=== PATIENT | female | born 1965 | race Hispanic/Latino ===

== ENCOUNTER → 2023-06-17 | Emergency (ER) | payer OTHER ==
[~2023-06-17] MED LIST: KETOROLAC 30 MG/ML INJ ONE; methocarbamoL 500 MG TAB ONE
--- OUTSIDE RECORDS SUMMARY | 2023-06-17 17:34 | XMS REPORT | Continuity of Care Document ---
Author Name Unknown Address [address] [facility] [address] [id number] [facility] Address [address] [facility] [place] [address] Care Team Providers Care Ripsaw Operator Name Role Phone PCP, PATIENT DOES NOT HAVE A Primary Care Physic OSMAN Lopez III Attending Clinician Radha luna Only, Brennan Db Test Attending Clinician Osman Guzman MD Attending Clinician Payers Payer Name Policy Type Policy Number Effective Date Expirati on Date Source [employer] II [id number] 2021 00:00:00 Allergies, Adverse Reactions, Alerts Allergy Name Allergy Type Status Severity Reaction(s) Onset Date Inactive Date Treating Clinician Comments Source NO KNOWN ALLERGIE S Drug Class Active General acute hospital Social History Social Habit Start Date Stop Date Quantity Comments Source Exposure to SARS-CoV-2 (event) Yes [facility] Sex Assigned At 1965 00:00:00 1965 00:00:00 [facility] Smoking Status Start Date Stop Date Source Unknown if ever smoked [facility] Medications Ordered Medication Name Filled Medication Name Start Date Stop Date Current Medication? Ordering Clinician Indication Dosage Frequency Signature (SIG) Comments Components Source No known medications 06-03 18:09: 57 No General acute hospital Encounters Start Date/Time End Date/Time Encounter Type Admission Type Attending Clinicians Care Facility Care Department Encounter ID Source 2021-06-03 18:00:00 2021-06-03 18:08:51 Outpatient OSMAN KOTHARI III [facility] [id number] General acute hospital 2021-06-03 18:00:00 2021-06-03 18:08:51 Laboratory Only Only, Ang Db Test Osman Crabtree [facility] [id number] General acute hospital 2021-06-03 18:00:00 2021-06-03 18:00:00 Outpatient R [facility] [id number] General acute hospital
--- NOTE | 2023-06-17 19:30 | RAD REPORT ---
EXAM DESCRIPTION: US - Extremity Venous Uni Ltd - 06/17/2023 7:07 pm CLINICAL HISTORY: Right lower extremity swelling COMPARISON: None. TECHNIQUE: Real-time sonographic evaluation of the right lower extremity deep venous system was perf ormed. FINDINGS: Normal compressibility, flow augmentation, phasic flow and spontaneous flow is identified in the right lower extremity deep venous system. No intraluminal filling defects seen. IMPRESSION: No DVT in the right lower extremity.
--- NOTE | 2023-06-17 19:43 | ER ---
Nurse's Notes [facility] Name: Dora John Age: 57 yrs Sex: Female : 1965 Arrival Date: 06/17/2023 Time: 17:32 Bed DIS2 Private MD: Diagnosis: Pain in left leg Presentation: 06/17 18:22 Chief complaint: Patient states: Pt reports right calf pain since yesterday. ap3 Coronavirus screen: Vaccine status: Patient reports receiving the 2nd dose of the covid vaccine. Client denies travel out of the [place] in the last 14 days. Ebola Screen: Patient negative for fever greater than or equal to 101.5 degrees Fahrenheit, and additional compatible Ebola Virus Disease symptoms Patient denies exposure to infectious person. Patient denies travel to an Ebola-affected area in the 21 days before illness onset. Initial Sepsis Screen: Does the patient meet any 2 criteria? No. Patient's initial sepsis screen is negative. Does the patient have a suspected source of infection? No. Patient's initial sepsis screen is negative. Risk Assessment: Do you want to hurt yourself or someone else? Patient reports no desire to harm self or others. Onset of symptoms was June 16, 2023 at 09:00. 18:22 Method Of Arrival: Ambulatory ap3 18:22 Acuity: JUSTIN 2 ap3 Triage Assessment: 18:23 General: Appears in no apparent distress. Behavior is calm, cooperative. Pain: ap3 Complains of pain in right calf. Historical: - Allergies: 18:23 No Known Allergies; ap3 - Home Meds: 18:23 None [Active]; ap3 - PMHx: 18:23 None; ap3 - PSHx: 18:23 None; ap3 - Immunization history:: Adult Immunizations up to date, Client reports receiving the 2nd dose of the Covid vaccine, Last tetanus immunization: up to date. - Social history:: Smoking status: Patient denies any tobacco usage or history of. Screenin:30 [facility] ED Fall Risk Assessment (Adult) History of falling in the last 3 months, lg3 including since admission No falls in past 3 months (0 pts). Abuse screen: Denies threats or abuse. Denies injuries from another. Nutritional screening: No deficits noted. Tuberculosis screening: No symptoms or risk factors identified. Assessment: 20:30 General: Appears in no apparent distress. comfortable, Behavior is calm, cooperative. lg3 Pain: Complains of pain in right leg and right calf Pain currently is 4 out of 10 on a pain scale. Neuro: No deficits noted. Albert Agitation-Sedation Scale (RASS): 0 - Alert and Calm Level of Consciousness is awake, alert, obeys commands, Oriented to person, place, time, situation. Cardiovascular: No deficits noted. Denies chest pain, shortness of breath, Capillary refill < 3 seconds Clubbing of nail beds is absent JVD is absent Patient's skin is warm and dry. Respiratory: No deficits noted. Airway is patent Respiratory effort is even, unlabored, Respiratory pattern is regular, symmetrical. GI: No deficits noted. No signs and/or symptoms were reported involving the gastrointestinal system. Abdomen is round non-distended, obese. : No deficits noted. No signs and/or symptoms were reported regarding the genitourinary system. EENT: No deficits noted. No signs and/or symptoms were reported regarding the EENT system. Derm: No deficits noted. No signs and/or symptoms reported regarding the dermatologic system. Skin is intact, is healthy with good turgor, Skin is dry, Skin is normal, Skin temperature is warm. Musculoskeletal: No deficits noted. Circulation, motion, and sensation intact. Range of motion: intact in all extremities, Reports pain in right leg and right calf. Vital Signs: 18:22 Pulse 89; Resp 16; Temp 98.5; Pulse Ox 99% ; Weight 97.52 kg; Height 5 ft. 0 in. ; Pain ap3 10/10; 18:24 BP 189 / 99; ap3 20:30 BP 162 / 89; Pulse 80; Resp 17 S; Pulse Ox 99% on R/A; lg3 18:22 Body Mass Index 41.99 (97.52 kg, 152.4 cm) ap3 18:22 Pain Scale: Adult ap3 ED Course: 17:35 Patient arrived in ED. mg5 17:38 Barber Ansari MD is Attending Physician. ec2 18:23 Triage completed. ap3 18:23 Arm band placed on right wrist. ap3 19:09 Extremity Venous Uni Ltd US In Process Unspecified. EDMS 20:30 Patient has correct armband on for positive identification. lg3 20:30 No provider procedures requiring assistance completed. Patient did not have IV access lg3 during this emergency room visit. Administered Medications: 20:22 Drug: Methocarbamol PO 500 mg PO once Route: PO; lg3 20:32 Follow up: Response: No adverse reaction lg3 20:23 Drug: Ketorolac IM 30 mg IM once Route: IM; Site: left deltoid; lg3 20:33 Follow up: Response: No adverse reaction lg3 Medication: 20:30 VIS not applicable for this client. lg3 Outcome: 19:43 Discharge ordered by . ec2 20:30 Discharged to home ambulatory, lg3 20:30 Condition: stable 20:30 Discharge instructions given to patient, Instructed on discharge instructions, follow up and referral plans. Demonstrated understanding of instructions, follow-up care, 20:33 Patient left the ED. lg3 Signatures: Dispatcher [employer] Rowan Duckworth RN RN ap3 Eva Stroud RN RN lg3 Iliana Hairston mg5 Barber Ansari MD MD ec2 Corrections: (The following items were deleted from the chart) 18:24 18:22 Chief complaint: Patient states: Pt reports left calf pain since yesterday ap3 ap3
--- NOTE | 2023-06-17 19:43 | EDPHYS ---
Physician Documentation [facility] Name: Dora John Age: 57 yrs Sex: Female : 1965 Arrival Date: 06/17/2023 Time: 17:32 Bed DIS2 Private MD: ED Physician Barber Ansari HPI: 06/17 18:36 This 57 yrs old Female presents to ER via Ambulatory with complaints of Leg ec2 Pain - Calf. 18:36 Patient arrives today for right leg pain. Patient reports she is experiencing pain at ec2 the right calf. Reports no trauma or injury, no strain. 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 Denies any redness or fevers or chills.. Historical: - Allergies: 18:23 No Known Allergies; ap3 - Home Meds: 18:23 None [Active]; ap3 - PMHx: 18:23 None; ap3 - PSHx: 18:23 None; ap3 - Immunization history:: Adult Immunizations up to date, Client reports receiving the 2nd dose of the Covid vaccine, Last tetanus immunization: up to date. - Social history:: Smoking status: Patient denies any tobacco usage or history of. ROS: 18:36 Constitutional: as per hpi ec2 Exam: 18:36 Constitutional: GEN: NAD Head: atraumatic Eyes: EOMI Ears: External ears are ec2 normal. CV: regular rate LUNGS: no respiratory distress ABD: non-distended SKIN: Prominent varicose veins on the right anterior tibia, TTP to the right calf. No erythema MSK: no evidence of trauma, good ROM of the right lower extremity NEURO: moves all extremities equally Vital Signs: 18:22 Pulse 89; Resp 16; Temp 98.5; Pulse Ox 99% ; Weight 97.52 kg; Height 5 ft. 0 in. ; Pain ap3 10/10; 18:24 BP 189 / 99; ap3 20:30 BP 162 / 89; Pulse 80; Resp 17 S; Pulse Ox 99% on R/A; lg3 18:22 Body Mass Index 41.99 (97.52 kg, 152.4 cm) ap3 18:22 Pain Scale: Adult ap3 MDM: 18:20 Patient medically screened. ec2 18:36 Data reviewed: vital signs. ED course: Patient arrives today for evaluation of right ec2 calf pain. Examination remarkable for right lower extremity findings as noted above. Will obtain lab work as well as ultrasonography of the right lower extremity. Currently considering DVT, calf strain, low suspicion for arterial pathology.. 19:31 ED course: DVT ultrasound negative. Will start the patient on Robaxin and have her ec2 follow with her primary care doctor. Suspect MSK pain. Return precautions given.. 06/17 18:34 Order name: Extremity Venous Uni Ltd US; Complete Time: 19:31 ec2 Administered Medications: 20:22 Drug: Methocarbamol PO 500 mg PO once Route: PO; lg3 20:32 Follow up: Response: No adverse reaction lg3 20:23 Drug: Ketorolac IM 30 mg IM once Route: IM; Site: left deltoid; lg3 20:33 Follow up: Response: No adverse reaction lg3 Disposition Summary: 06/17/23 19:43 Discharge Ordered Notes: Location: Home ec2 Condition: Stable ec2 Diagnosis - Pain in left leg ec2 Followup: ec2 - With: Private Physician - When: - Reason: Recheck today's complaints Discharge Instructions: - Discharge Summary Sheet ec2 - Musculoskeletal Pain ec2 Forms: - Medication Reconciliation Form ec2 - Thank You Letter ec2 - Antibiotic Education ec2 - Prescription Opioid Use ec2 - Patient Portal Instructions ec2 - Leadership Thank You Letter ec2 Prescriptions: - methocarbamol 500 mg Oral tablet - take 1 tablet ORAL route 4 times per day; 20 tablet; Refills: 0, Product ec2 Selection Permitted Signatures: Dispatcher [employer] Rowan Duckworth RN RN ap3 Eva Stroud RN RN lg3 Barber Ansari MD MD ec2 Corrections: (The following items were deleted from the chart) 18:44 18:44 Patient medically screened. ec2 ec2
== END ==
LOC: ER 17:32
DX: M79.661 Pain in right lower leg (principal)
CPT/HCPCS: 93971; 96372; 99284

== ENCOUNTER 2024-09-03 07:01 | Inpatient (IN) | payer OTHER ==
[2024-09-03] MEDS ORDERED: MORPHINE 4 MG/ML SYR ONE ×2 (07:36→11:57)
[2024-09-03] MEDS ORDERED: ONDANSETRON 4 MG/2 ML VIAL ONE (07:36)
[2024-09-03 07:42] LABS: Absolute Lymphocytes (CBC) 0.6 K/uL (0.7-4.9); Absolute Monocytes 0.3 K/uL (0.1-1.3); Absolute Neutrophil 11.9 K/uL (1.8-8.0); Basophils % 0.2 % (0-1.3); Hematocrit 44.5 % (36.0-45.0); Hemoglobin 15.3 g/dL (12.0-15.0); Lymphocytes % 4.8 % (15.3-44.8); MCH 29.4 pg (27.0-35.0); MCHC 34.4 g/dL (32.0-36.0); MCV 85.6 fL (80-100); MPV 7.7 fL (7.6-11.3); Monocytes % 2.5 % (3.3-12.3); Neutrophils % 92.5 % (41.7-73.7); Nucleated Red Blood Cells % 0.2 % (0-0); Platelets 252 thou/uL (152-406); Red Cell Distribution Width 14.8 % (12.1-15.2)
[2024-09-03 08:00] LABS: Albumin 3.4 g/dL (3.4-5.0); Albumin/Globulin Ratio 0.8 (1.1-1.8); Anion Gap 8.6 mEq/L (5.0-15.0); Bilirubin Total 0.4 mg/dL (0.2-1.0); Globulin 4.5 g/dL (2.3-3.5); Potassium 3.6 mEq/L (3.5-5.1); Protein, Total 7.9 g/dL (6.4-8.2)
--- NOTE | 2024-09-03 08:46 | RAD REPORT ---
EXAMINATION: CT ABDOMEN AND PELVIS WITH CONTRAST CLINICAL INDICATION: Abdominal pain. Rectal bleeding TECHNIQUE: CT abdomen and pelvis was performed, after the administration of 100 cc Isovue-300.. Sagit keyshawn and coronal reconstructions were obtained. One or more of the following dose reduction techniques were used: Automated exposure control, adjustment of the mA and kV according to patient si ze, and iterative reconstruction. Unless otherwise specified, incidental findings do not require dedicated imaging follow-up. [id number]. Oral contrast was not given which limits evaluation of bowel and appendix. COMPARISON: .None FINDINGS: Liver, pancreas, adrenals and kidneys unremarkable 1.6 cm splenic cyst. Normal appendix. The wall of the transverse colon moderately thickened. The wall of the ascending colon mildly thicken ed. Pneumatosis intestinalis is not present. No free air. No evidence of diverticulitis. 8 cm uterine mass : IMPRESSION: Mild to moderate wall thickening ascending and transverse colon consistent with colitis. 8 cm uterine mass probably a fibroid. Nonemergent ultrasound recommended
[2024-09-03 08:53] LABS: Blood Morphology Comment NOT SEEN (NOT SEEN); Platelet Estimate ADEQ; White Blood Cell Scan OK (OK)
[2024-09-03] MEDS ORDERED: NA CHLORIDE 0.9% 100 ML ONE (09:08)
[2024-09-03] MEDS ORDERED: PIPERACIL/TAZO 3.375 GM VIAL IV ONE (09:08)
--- NOTE | 2024-09-03 09:17 | ER ---
Nurse's Notes [facility] Name: Dora John Age: 58 yrs Sex: Female : 1965 Arrival Date: 09/03/2024 Time: 07:01 Bed 7 Private MD: Diagnosis: Left sided colitis with rectal bleeding Presentation: 09/03 07:16 Chief complaint: Patient states: N/V/D, rectal bleeding, body aches and fever that ss began at midnight last night. Coronavirus screen: Client denies travel out of the [place] in the last 14 days. Ebola Screen: Patient denies exposure to infectious person. Patient denies travel to an Ebola-affected area in the 21 days before illness onset. Initial Sepsis Screen: Does the patient meet any 2 criteria? No. Patient's initial sepsis screen is negative. Does the patient have a suspected source of infection? No. Patient's initial sepsis screen is negative. Risk Assessment: Do you want to hurt yourself or someone else? Patient reports no desire to harm self or others. Onset of symptoms was September 03, 2024. 07:16 Method Of Arrival: Wheelchair ss 07:16 Acuity: JUSTIN 3 ss Historical: - Allergies: 07:17 No Known Allergies; ss - Home Meds: 07:18 Lisinopril [Active]; ss - PMHx: 07:18 Hypertensive disorder; ss - Immunization history:: Adult Immunizations unknown. - Infectious Disease History:: Denies. - Family history:: not pertinent. - Social history:: Smoking status: Patient denies any tobacco usage or history of. - Hospitalizations: : No recent hospitalization is reported. Screenin:35 [facility] ED Fall Risk Assessment (Adult) History of falling in the last 3 months, db including since admission No falls in past 3 months (0 pts) Confusion or Disorientation No (0 pts) Intoxicated or Sedated No (0 pts) Impaired Gait No (0 pts) Mobility Assist Device Used No (0 pt) Altered Elimination No (0 pt) Score/Fall Risk Level 0 - 2 = Low Risk Oriented to surroundings, Maintained a safe environment. Abuse screen: Denies threats or abuse. Denies injuries from another. Nutritional screening: No deficits noted. Tuberculosis screening: No symptoms or risk factors identified. Assessment: 07:35 Reassessment: Patient appears in no apparent distress at this time. Patient and/or db family updated on plan of care and expected duration. Pain level reassessed. Patient is alert, oriented x 3, equal unlabored respirations, skin warm/dry/pink. General: Appears in no apparent distress. comfortable, Behavior is calm, cooperative. Pain: Complains of pain in abdomen. Neuro: Level of Consciousness is awake, alert, obeys commands, Oriented to person, place, time, situation. Respiratory: Airway is patent Respiratory effort is even, unlabored, Respiratory pattern is regular, symmetrical. GI: Bowel sounds present X 4 quads. Abd is soft Abdomen is tender to palpation. GI: Reports diarrhea, nausea, vomiting. 11:28 Reassessment: Patient appears in no apparent distress at this time. Patient and/or jl7 family updated on plan of care and expected duration. Pain level reassessed. Patient is alert, oriented x 3, equal unlabored respirations, skin warm/dry/pink. Family remains at bedside. 11:39 Reassessment: Called and spoke with JM Connell who states she is waiting to hear ss back from Dr. Miranda prior to placing admission orders. 12:03 Reassessment: PATIENT COMPLAINS OF PAIN. SEE MAR FOR MEDICATION ADMINISTRATION. Pain: db Complains of pain in abdomen. 13:03 Reassessment: Lactate ordered at this time. JM Garcia states that Dr. Givens and Dr. kerri Lang are considering transferring patient. Awaiting LACTATE results. 13:33 Reassessment: Patient appears in no apparent distress at this time. Patient and/or db family updated on plan of care and expected duration. Pain level reassessed. Patient is alert, oriented x 3, equal unlabored respirations, skin warm/dry/pink. GI: Stools are reported to be NOTED 1/2 DOLLAR SIZE MUCOUS STOOL WITH RED BLOOD . Reports. 14:23 Reassessment: Dr. Lang on phone with Dr. Miranda to ensure that he would be seeing ss patient in hospital today. Dr. Miranda states he will be in to see patient after clinic today which ends at approximately 1800. 14:27 Reassessment: Dr. Lang states ok to admit patient. 14:31 Reassessment: NOTIFIED 2ND FLOOR RN PATIENT IS ON THE WAY. FAXED AT 1338. HELD IN ER db PENDING LAB AND PHYSICIAN. Vital Signs: 07:15 BP 175 / 87; Pulse 71; Resp 16; Pulse Ox 96% ; db 07:16 BP 163 / 86; Pulse 65; Resp 18; Temp 98.1(O); Pulse Ox 98% on R/A; Weight 97.52 kg; ss Height 5 ft. 0 in. ; Pain 10/10; 09:45 BP 162 / 89; Pulse 75; Resp 16; Pulse Ox 97% ; db 11:27 BP 164 / 77; Pulse 63; Resp 15; Pulse Ox 95% ; jl7 12:03 BP 176 / 66; Pulse 95; Resp 16; Pulse Ox 95% on R/A; db 13:00 BP 172 / 76; Pulse 86; Resp 16; Pulse Ox 95% on R/A; db 14:00 BP 172 / 80; Pulse 78; Resp 16; Pulse Ox 95% on R/A; db 07:16 Body Mass Index 41.99 (97.52 kg, 152.4 cm) ss 07:16 Pain Scale: Adult ss ED Course: 07:05 Patient arrived in ED. jj6 07:05 Alan Stringer MD is Attending Physician. rn 07:17 Triage completed. ss 07:18 Arm band placed on right wrist. ss 07:32 Initial lab(s) drawn, by ky, sent to lab. Inserted saline lock: 20 gauge in right db antecubital area, using aseptic technique. Blood collected. Flushed with 10 mL NS. 07:34 Zenobia Martines, RN is Primary Nurse. db 07:37 Patient has correct armband on for positive identification. Bed in low position. Call db light in reach. Side rails up X 1. Pulse ox on. NIBP on. Warm blanket given. 08:21 CT Abd/Pelvis - IV Contrast Only In Process Unspecified. EDMS 09:16 Grady Lang PA is Hospitalizing Provider. rn 13:15 Initial lab(s) drawn, sent to lab. db 14:54 Provided Education on: ADMISSION. db 14:54 No provider procedures requiring assistance completed. Patient admitted, IV remains in db place. Administered Medications: 07:55 Drug: Ondansetron IVP 4 mg IVP once; over 2 minutes Route: IVP; Site: right antecubital;db 12:03 Follow up: Response: No adverse reaction db 07:55 Drug: morphine IVP or IV 4 mg IVP once over 4 mins Route: IVP; Infused Over: 4 mins; db Site: right antecubital; 08:30 Follow up: Response: No adverse reaction; Pain is decreased db 09:25 Drug: Piperacillin-Tazobactam IVPB 3.375 grams IVPB once over 60 mins; (mix in NS 100 db mL) Route: IVPB; Infused Over: 60 mins; Site: right antecubital; 10:30 Follow up: Response: No adverse reaction; IV Status: Completed infusion; IV Intake: db 100ml 12:02 Drug: morphine IVP or IV 4 mg IVP once over 4 mins Route: IVP; Infused Over: 4 mins; db Site: right antecubital; 15:14 Follow up: Response: No adverse reaction; Pain is decreased db Medication: 07:35 VIS not applicable for this client. db Intake: 10:30 IV: 100ml; Total: 100ml. db Outcome: 09:16 Decision to Hospitalize by Provider. rn 14:54 Admitted to Med/surg room 220, db 14:54 Condition: stable 14:54 Instructed on the need for admit, 15:14 Patient left the ED. db Signatures: Dispatcher [employer] EDMS Alan Stringer MD MD rn Blanchard, Shelby, RN RN ss Leal, Jahala, RN RN jlMarcy Granados Danielle, RN RN db Corrections: (The following items were deleted from the chart) 14:53 13:03 Reassessment: Lactate ordered at this time. JM Garcia states that Dr. Chon manning and Dr. Lang are considering transferring patient. Awaiting LACTATE results. ss
--- NOTE | 2024-09-03 09:17 | EDPHYS ---
Physician Documentation [facility] Name: oDra John Age: 58 yrs Sex: Female : 1965 Arrival Date: 09/03/2024 Time: 07:01 Bed 7 Private MD: ED Physician Alan Stringer HPI: 09/03 07:53 This 58 yrs old Female presents to ER via Wheelchair with complaints of Low rn Back Pain, Rectal Bleeding, Abdominal Pain, Nausea. 07:54 The patient presents with abdominal pain in the lower abdomen. Onset: The rn symptoms/episode began/occurred this morning. Associated signs and symptoms: Pertinent positives: diarrhea, Pertinent negatives: fever. Modifying factors: The symptoms are alleviated by nothing, the symptoms are aggravated by nothing. Severity of pain: At its worst the pain was mild in the emergency department the pain is unchanged. Patient reports lower abdominal pain associated with diarrhea and bright red blood since this morning. Denies fever but reports chills. Associated with nausea and vomiting. No chronic intestinal problems. Has not had a colonoscopy. Has not happened before.. Historical: - Allergies: 07:17 No Known Allergies; ss - Home Meds: 07:18 Lisinopril [Active]; ss - PMHx: 07:18 Hypertensive disorder; ss - Immunization history:: Adult Immunizations unknown. - Infectious Disease History:: Denies. - Family history:: not pertinent. - Social history:: Smoking status: Patient denies any tobacco usage or history of. - Hospitalizations: : No recent hospitalization is reported. ROS: 07:54 Constitutional: Negative for fever positive for chills Cardiovascular: Negative for rn chest pain, palpitations, and edema, Respiratory: Negative for shortness of breath, cough, wheezing, and pleuritic chest pain, Abdomen/GI: Positive for lower abdominal pain with vomiting and rectal bleeding MS/Extremity: Negative for injury and deformity, Skin: Negative for injury, rash, and discoloration, Neuro: Negative for headache, weakness, numbness, tingling, and seizure, Exam: 07:54 Constitutional: This is a well developed, well nourished patient who is awake, alert, rn and in no acute distress. Cardiovascular: Regular rate and rhythm. No pulse deficits. Respiratory: No increased work of breathing, no retractions or nasal flaring. Abdomen/GI: Soft, suprapubic and left lower quadrant tenderness as well as left upper quadrant tenderness. No peritoneal signs or masses Neuro: Awake and alert, GCS 15 Vital Signs: 07:15 BP 175 / 87; Pulse 71; Resp 16; Pulse Ox 96% ; db 07:16 BP 163 / 86; Pulse 65; Resp 18; Temp 98.1(O); Pulse Ox 98% on R/A; Weight 97.52 kg; ss Height 5 ft. 0 in. ; Pain 10/10; 09:45 BP 162 / 89; Pulse 75; Resp 16; Pulse Ox 97% ; db 11:27 BP 164 / 77; Pulse 63; Resp 15; Pulse Ox 95% ; jl7 12:03 BP 176 / 66; Pulse 95; Resp 16; Pulse Ox 95% on R/A; db 13:00 BP 172 / 76; Pulse 86; Resp 16; Pulse Ox 95% on R/A; db 14:00 BP 172 / 80; Pulse 78; Resp 16; Pulse Ox 95% on R/A; db 07:16 Body Mass Index 41.99 (97.52 kg, 152.4 cm) ss 07:16 Pain Scale: Adult ss MDM: 07:05 Medical Screening Exam initiated rn 09:16 Differential diagnosis: appendicitis, bowel obstruction, diverticulitis, non-specific rn abd pain, Colitis. Data reviewed: vital signs, nurses notes, lab test result(s), radiologic studies, CT scan, and as a result, I will admit patient. Consideration of Admission/Observation Patient was admitted/placed on observation. Escalation of care including admission/observation considered. Counseling: I had a detailed discussion with the patient and/or guardian regarding the historical points, exam findings, and any diagnostic results supporting the discharge/admit diagnosis, lab results, radiology results, the need for further work-up and treatment in the hospital. Response to treatment: the patient's symptoms have mildly improved after treatment, and as a result, I will admit patient. 09/03 07:19 Order name: CBC with Diff; Complete Time: 09:15 rn 09/03 07:19 Order name: CMP; Complete Time: 08:23 rn 09/03 07:19 Order name: Lipase; Complete Time: 08:23 rn 09/03 08:53 Order name: CBC Smear Scan; Complete Time: 09:15 EDMS 09/03 12:52 Order name: Basic Metabolic Panel EDMS 09/03 12:52 Order name: Basic Metabolic Panel EDMS 09/03 12:52 Order name: Basic Metabolic Panel EDMS 09/03 12:52 Order name: Basic Metabolic Panel EDMS 09/03 12:52 Order name: Basic Metabolic Panel EDMS 09/03 12:52 Order name: Basic Metabolic Panel EDMS 09/03 12:52 Order name: Basic Metabolic Panel EDMS 09/03 12:52 Order name: Basic Metabolic Panel EDMS 09/03 12:52 Order name: CBC with Automated Diff EDMS 09/03 12:52 Order name: CBC with Automated Diff EDMS 09/03 12:52 Order name: CBC with Automated Diff EDMS 09/03 12:52 Order name: CBC with Automated Diff EDMS 09/03 12:52 Order name: CBC with Automated Diff EDMS 09/03 12:52 Order name: CBC with Automated Diff EDMS 09/03 12:52 Order name: CBC with Automated Diff EDMS 09/03 12:52 Order name: CBC with Automated Diff EDMS 09/03 12:52 Order name: Magnesium EDMS 09/03 12:52 Order name: Magnesium EDMS 09/03 12:52 Order name: Magnesium EDMS 09/03 12:52 Order name: Magnesium EDMS 09/03 12:52 Order name: Magnesium EDMS 09/03 12:52 Order name: Magnesium EDMS 09/03 12:52 Order name: Magnesium EDMS 09/03 12:52 Order name: Magnesium EDMS 09/03 12:52 Order name: Phosphorus EDMS 09/03 12:52 Order name: Phosphorus EDMS 09/03 12:52 Order name: Phosphorus EDMS 09/03 12:52 Order name: Phosphorus EDMS 09/03 12:52 Order name: Phosphorus EDMS 09/03 12:52 Order name: Phosphorus EDMS 09/03 12:52 Order name: Phosphorus EDMS 09/03 12:52 Order name: Phosphorus EDMS 09/03 13:03 Order name: Lactate w/ 2H reflex if indic.; Complete Time: 14:05 EDMS 09/03 13:59 Order name: Basic Metabolic Panel EDMS 09/03 13:59 Order name: CBC with Automated Diff EDMS 09/03 13:59 Order name: Lactate w/ 2H reflex if indic. EDMS 09/03 07:19 Order name: CT Abd/Pelvis - IV Contrast Only; Complete Time: 08:48 rn 09/03 12:52 Order name: CONS Physician Consult EDMS 09/03 12:54 Order name: Dr Chon Consult EDMS 09/03 07:19 Order name: IV Saline Lock; Complete Time: 07:40 rn 09/03 07:19 Order name: Labs collected and sent; Complete Time: 07:40 rn Administered Medications: 07:55 Drug: Ondansetron IVP 4 mg IVP once; over 2 minutes Route: IVP; Site: right antecubital;db 12:03 Follow up: Response: No adverse reaction db 07:55 Drug: morphine IVP or IV 4 mg IVP once over 4 mins Route: IVP; Infused Over: 4 mins; db Site: right antecubital; 08:30 Follow up: Response: No adverse reaction; Pain is decreased db 09:25 Drug: Piperacillin-Tazobactam IVPB 3.375 grams IVPB once over 60 mins; (mix in NS 100 db mL) Route: IVPB; Infused Over: 60 mins; Site: right antecubital; 10:30 Follow up: Response: No adverse reaction; IV Status: Completed infusion; IV Intake: db 100ml 12:02 Drug: morphine IVP or IV 4 mg IVP once over 4 mins Route: IVP; Infused Over: 4 mins; db Site: right antecubital; 15:14 Follow up: Response: No adverse reaction; Pain is decreased db Disposition Summary: 09/03/24 09:16 Hospitalization Ordered Notes: Hospitalization Status: Inpatient Admission rn Provider: Grady Lang rn Location: Telemetry/[facility] (Inpatient) rn Condition: Stable rn Problem: new rn Symptoms: have improved rn Bed/Room Type: Standard rn Room Assignment: 220(09/03/24 14:53) ss Diagnosis - Left sided colitis with rectal bleeding rn Forms: - Medication Reconciliation Form rn - SBAR form rn - Leadership Thank You Letter rn Signatures: Dispatcher [employer] Alexa Montgomery Roman, MD MD rn Blanchard, Shelby, RN RN Zenobia Ortega RN RN db Corrections: (The following items were deleted from the chart) 07:19 07:19 CBC+H.LAB.BRZ ordered. EDMS EDMS 07:19 07:19 COMPREHENSIVE METABOLIC PANEL+C.LAB.BRZ ordered. EDMS EDMS 07:19 07:19 LIPASE+C.LAB.BRZ ordered. EDMS EDMS 07:20 07:20 Abdomen Pelvis W Con+CT.RAD.BRZ ordered. EDMS EDMS 13:05 09:16 rn bd 14:53 13:05 203 bd ss
--- NOTE | 2024-09-03 09:40 | P.HP ---
Certification for Inpatient Patient admitted to: Observation With expected LOS: <2 Midnights Patient will require the following post-hospital care: None Practitioner: I am a practitioner with admitting privileges, knowledge of patient current condition, hospital course, and medical plan of care. Services: Services provided to patient in accordance with Admission requirements found in Title 42 Section 412.3 of the Code of Federal Regulations Patient History Date of Service: 09/03/24 Reason for admission: GI rectal bleed History of Present Illness: Dora John is a 58 year old female with Pmhx HTN who presents to the ED with rectal bleeding. She reports symptoms started at midnight with severe diffuse abdominal pain associated with vomiting and bloody diarrhea. She reports fever and chills. She continues with rectal bleeding and abdominal pain while in the ED. she reports her mother with Crohn's disease diagnosis. She denies having a colonoscopy in the past and her mother was diagnosed with crohns several years ago. On evaluation abdominal pain to palpation, abdomen soft, afebrile, uncomfortable but no acute distress. Discussed with Dr. Miranda and Dr. Givens. Laboratory evaluation WBC 12.8, lactic acid 0.8, and serum glucose 177. CT abd/pelvis reports " Mild to moderate wall thickening ascending and transverse colon consistent with colitis. 8 cm uterine mass probably a fibroid. Nonemergent ultrasound recommended." Dora will be admitted to hospitalist service. Dr. Miranda will evaluate around 6 Pm. Allergies No Known Allergies Allergy (Unverified 09/03/24 14:33) Home Medications: Lisinopril [Zestril] 10 mg PO DAILY 09/03/24 - Past Medical/Surgical History -: Hypertension Past Surgical History: Patient denies surgical history - Family History Mother Notes: Crohn's disease - Social History Smoking Status: Never smoker Alcohol use: No CD- Drugs: No Caffeine use: No Review of Systems Other: Per HPI Physical Examination - Physical Exam General: Alert, In no apparent distress, Oriented x3 HEENT: Atraumatic, Normocephalic, PERRLA Neck: Supple, 2+ carotid pulse no bruit Respiratory: Clear to auscultation bilaterally, Normal air movement Cardiovascular: Normal pulses, Regular rate/rhythm Capillary refill: <2 Seconds Gastrointestinal: Normal bowel sounds, Soft and benign, Tenderness Musculoskeletal: No clubbing Integumentary: No rashes Neurological: Normal speech, Normal tone - Studies Laboratory Data (last 24 hrs) 09/03/24 09/03/24 07:32 07:32 WBC 12.90 H Hgb 15.3 H Hct 44.5 Plt Count 252 Sodium 137 Potassium 3.6 BUN 17 Creatinine 0.91 Glucose 177 H Total Bilirubin 0.4 AST 23 ALT 29 Alkaline Phosphatase 110 Lipase 35 Assessment and Plan - Plan Assessment and Plan Suspect Ischemic colitis - Dr. Miranda and Dr. Givens consulted - Dr Miranda will evaluate around 6 pm - Lactic WNL - IVF - NPO - Protonix drip - Pain control - IV Zosyn - Monitor H&H closely 8 cm questionable fibroid -CT abdomen/pelvis incidental finding -Follow-up outpatient -Reports no vaginal bleeding Hypertension -Continue home medications as appropriate DVT PPx SCDs Full code LOS 2 to 3 days Discharge Plan: Home Plan to discharge in: 48 Hours - Advance Directives Does patient have a Living Will: No Does patient have a Durable POA for Healthcare: No
[2024-09-03] MEDS ORDERED: ACETAMINOPHEN 325 MG TABLET PO PRN (12:46)
--- NOTE | 2024-09-03 14:42 | P.PN ---
This is an attestation to [employer] note Subjective: Presented with nausea, vomiting, abdominal pain and rectal bleed from last night, vomiting better, she may have had small amount of blood in the vomiting as well after multiple episodes of vomiting. Rectal bleeding is ongoing. No chest pain or shortness of breath. Looks comfortable in the bed. Objective: General appearance: Alert and comfortable CVS: Normal S1 and S2 Lungs: Clear to auscultation bilaterally Abdomen: Soft, bowel sounds present, mild tenderness in the mid and lower abdomen Extremities: No lower extremity edema 58 yo patient with abdominal pain, nausea, vomiting and rectal bleed, could be from inflammatory bowel disease versus ischemic colitis, keep n.p.o. for now, started on IV Protonix and IV antibiotics to cover for infectious colitis and also upper GI bleed as she had small amount of blood in one of the vomiting, GI consult requested, I personally discussed with Dr. Diamond, he said he will come and see the patient around 6 PM this evening, monitor closely for now. Surgery consult requested as well. Plan discussed with patient and family at bedside, discussed with ED team.
[2024-09-03] MEDS ORDERED: NA CHLORIDE 0.9% 500 ML ONE (14:46)
[2024-09-03] MEDS: PANTOPRAZOLE INJ 80 MG in NA CHLORIDE 0.9% 250 ML IV SCH (14:47)
[2024-09-03] MEDS: NA CHLORIDE 0.9% 500 ML IV ONE (14:47)
[2024-09-03 14:56] LABS: Absolute Basophils 0.1 K/uL (0-0.5); Absolute Lymphocytes (CBC) 0.7 K/uL (0.7-4.9); Absolute Monocytes 0.4 K/uL (0.1-1.3); Absolute Neutrophil 11.6 K/uL (1.8-8.0); Basophils % 0.5 % (0-1.3); Hematocrit 42.9 % (36.0-45.0); Hemoglobin 14.5 g/dL (12.0-15.0); Lymphocytes % 5.4 % (15.3-44.8); MCH 29.1 pg (27.0-35.0); MCHC 33.8 g/dL (32.0-36.0); MPV 7.5 fL (7.6-11.3); Monocytes % 2.9 % (3.3-12.3); Neutrophils % 91.2 % (41.7-73.7); Platelets 269 thou/uL (152-406); RBC Red Blood Cell Count 4.98 M/uL (3.86-4.86)
[2024-09-03 15:06] LABS: Anion Gap 7.7 mEq/L (5.0-15.0); Potassium 3.7 mEq/L (3.5-5.1)
[2024-09-03] MEDS: NA CHLORIDE 0.9% 1,000 ML IV SCH (15:39)
[2024-09-03 15:54] VITALS: BMI 42.0
[2024-09-03] MEDS: PIPER TAZO 3.375 GM in NA CHLORIDE 0.9% 100 ML IV SCH (16:06)
[2024-09-03] MEDS: HYDRALAZINE HCL 20 MG/ML VIAL IV PRN (16:06)
[2024-09-03] MEDS: MORPHINE 2 MG/ML SYR IV PRN (16:07)
[2024-09-03] MEDS: ONDANSETRON 4 MG/2 ML VIAL IV PRN (18:31)
[2024-09-03 19:07] LABS: Hematocrit 43.2 % (36.0-45.0); Hemoglobin 14.6 g/dL (12.0-15.0)
--- NOTE | 2024-09-04 01:03 | CON ---
Date of Consultation: 09/03/2024 Reason For Consultation: Lower abdominal pain with bloody diarrhea. Nausea, vomiting. History Of Present Illness: The patient is a 58-year-old female with history of hypertensio n, obesity. The patient came to the hospital due to lower abdominal pain, bloody diarrhea, nausea, a nd vomiting. The patient states that she was in her usual state of health until about a week ago. S he began having lower abdominal pain that was unexplained. Then early this morning at 12:30 a.m., harvey luna was awakened out of her sleep with severe 10/10 periumbilical right and left lower quadrant pain, a ssociated with nausea, vomiting with 6 events of emesis. She went to the bathroom, had a black stool at least 4-5 times that smelled horrendous, she reports. After the fifth time, the bowel movement t urned bright red, bloody hematochezia, that ran down her leg when she walked across the floor next to the bathroom and then passed out on the toilet she reports with numbness in her legs and her found her on the toilet it appears, and later appears to have called 911 and got her to the hospital . She denies prior colonoscopy. She reports recently being placed on blood pressure medication, whi ch she has refused to take. She drinks about 2 cups of coffee a day. 2 glasses of tea a day, and lot s of water. She notes being recently diagnosed with hypercholesterolemia and states her primary care physician told her it was borderline, but worsening. She also has a family history of Crohn's disea se in her mother. Past Medical History: Significant for hypertension, appears to be borderline, hypercholesterolemia, and obesity. Medications: Blood pressure medicine is lisinopril 10 mg p.o. daily, which she does not take, she re ports to me. Allergies: NKDA. Social History: She is , 4 children; 3 sons, 1 daughter. No tobacco. Occasional wine for al cohol. Family History: Father at age 91 from lymphoma, taken care by Dr. Young. Mother at age 8 8 from congestive heart failure and also had a history of Crohn's disease diagnosed when she was 40 y ears of age. She also has a sister, who is 10 years older than her, and at the age of 67, had a stro ke. Review of Systems: The patient has periumbilical right and left lower quadrant pain, bloody diarrhea, nausea, vomiting. Syncope, it appears passing down on toilet. The patient denies any chest pain, shortness of breath, muscle aches, joint aches, backaches, seizure, syncope, anxiety, depression. Physical Examination: Vital Signs: The patient is 5 foot, 215 pounds, BMI 42 kg/m2. Temperature 99.2 degrees Fahrenheit, pulse 80-101, respirations 18, blood pressure 152/69, O2 saturation 96%. General: She is an obese female, lying in bed, in no acute distress except for some mild lower abdom inal pain she reports. HEENT: Normocephalic, atraumatic. Anicteric. Pupils are equal, round, and reactive to light. Extr aocular movements intact. Oropharynx clear. Neck: Supple, no masses. Respirations: Clear to auscultation bilaterally. Cardiac: Regular rate and rhythm. Gastrointestinal: Positive bowel sounds. Soft, nondistended. Mild tenderness in the periumbilical right and left lower quadrant areas, but no peritoneal Holt sign. Some mild guarding, however. No hepatosplenomegaly noted. Obese. Extremities: No clubbing, cyanosis, or edema. A 2+ pulses. Neuro: Alert and oriented x3. Grossly nonfocal. A 5/5 motor sensation to light touch. Laboratory Data: The patient's white count 12.8 down from 12.9 earlier today at 7 o'clock. Hemoglob in down from 15.3-14.5 now, hematocrit 43, MCV of 86, platelet count 269. Polys 92%, lymphocytes 5%, monocytes 3%. The patient has a sodium of 130, potassium 3.7, chloride 104, bicarb 30, BUN of 14, c reatinine 0.9, glucose 128, lactic acid 0.8, calcium 9.1, total bilirubin 0.4, AST 23, ALT 29, alkali ne phosphatase 110, total protein 7.2, albumin 3.4, globulin 4.5, lipase 35. Serology, CT abdomen an d pelvis reveals colitis of the ascending colon, transverse colon. Mild to moderate wall thickening of ascending, transverse colon consistent with colitis and an 8 cm uterine mass, probably a fibroid. Nonemergent ultrasound recommended. Impression: 1. Probable ischemic colitis, less likely infectious colitis. The patient awakened at 12:30 a.m. thi s morning with marked severe 10/10 periumbilical right and left lower quadrant pain associated with n ausea and vomiting x6 events and then with sudden black stools 4-5 times that smelled horrendous. Af ter the fifth time, the blood turned bright red and ran down her leg. The patient passed out on toil et with numbness in legs, found by and son and taken her to the emergency room. The patient has no prior colonoscopy. The patient was prescribed blood pressure medicines over the past year, bu t does not take them. The patient has borderline hyperlipidemia. She has a sister, who had a stroke as well. She drinks 2 cups of coffee, 2 glasses of tea and the rest is water most of the day. 2. History of hypertension, hyperlipidemia, obesity, with a family history of Crohn disease in her mo ther and not taking her blood pressure medications. Recommendations: 1. Continue IV fluids and IV antibiotics. 2. Serial H and H and transfused p.r.n. 3. Keep patient n.p.o. except for ice chips now and then advance as tolerated as the patient gets bet ter and pain goes away to clear liquids and full liquids, GI soft, perform outpatient colonoscopy. Keon luna will check an IBD panel in this patient as well. 4. Check stool studies. JORGE Voice ID: [id number] Report ID: [id number]
[2024-09-04 01:41] LABS: Hematocrit 40.5 % (36.0-45.0); Hemoglobin 13.6 g/dL (12.0-15.0)
[2024-09-04 05:32] LABS: Absolute Basophils 0.1 K/uL (0-0.5); Absolute Lymphocytes (CBC) 1.2 K/uL (0.7-4.9); Absolute Neutrophil 12.4 K/uL (1.8-8.0); Basophils % 0.4 % (0-1.3); Hematocrit 39.6 % (36.0-45.0); Hemoglobin 13.3 g/dL (12.0-15.0); Lymphocytes % 7.9 % (15.3-44.8); MCHC 33.6 g/dL (32.0-36.0); MCV 86.3 fL (80-100); MPV 7.6 fL (7.6-11.3); Monocytes % 6.8 % (3.3-12.3); Neutrophils % 84.9 % (41.7-73.7); Platelets 238 thou/uL (152-406); RBC Red Blood Cell Count 4.59 M/uL (3.86-4.86); Red Cell Distribution Width 14.8 % (12.1-15.2)
[2024-09-04 05:44] LABS: Anion Gap 6.4 mEq/L (5.0-15.0); Magnesium 2.2 mg/dL (1.6-2.4); Phosphorus 2.6 mg/dL (2.5-4.9); Potassium 3.4 mEq/L (3.5-5.1)
[2024-09-04] MEDS: CODEINE 30MG/APAP 300MG TAB PO PRN (07:51)
[2024-09-04] MEDS: KCL 20 MEQ/100 mL IVPB 20 MEQ/100 ML BAG IV SCH (07:52)
[2024-09-04] MEDS: lisinopriL 10 MG TAB PO SCH (13:18)
--- NOTE | 2024-09-04 16:04 | P.PN ---
Subjective Date of Service: 09/04/24 Chief Complaint: GI rectal bleed Subjective: No new changes No acute events overnight Review of Systems 10-point ROS is otherwise unremarkable Physical Examination - Vital Signs Temperature: 98.1 F Blood Pressure: 138/61 Pulse: 114 Respirations: 16 Pulse Ox (%): 96 - Physical Exam General: Alert HEENT: Atraumatic, Normocephalic, PERRLA Neck: Supple Respiratory: Clear to auscultation bilaterally Cardiovascular: No edema Gastrointestinal: Normal bowel sounds Musculoskeletal: No clubbing, No swelling Integumentary: No rashes, No breakdown Neurological: Normal gait Assessment And Plan - Plan Assessment and Plan Diarrhea with hematochezia -Concern for infectious versus ischemic colitis - CT abdomen/pelvis with contrast showed evidence of colitis around the ascending and transverse colon - Discussed with GI, Dr. Miranda: Continue on clears, bowel prep ordered, plan for colonoscopy tomorrow 8 cm questionable fibroid -CT abdomen/pelvis incidental finding -Follow-up outpatient -Reports no vaginal bleeding Hypertension -Continue home medications as appropriate DVT PPx SCDs Full code LOS 2 to 3 days Discharge Plan: Home Plan to discharge in: 48 Hours
[2024-09-04] MEDS: MAGNESIUM CITRATE 300 ML BOT PO ONE (16:54)
[2024-09-04] MEDS: METOPROLOL TAR 25 MG TAB PO SCH (16:54)
[2024-09-04] MEDS: GOLYTELY 4000 ML PO ONE (16:54)
[2024-09-04] MEDS: PANTOPRAZOLE 40MG TABLET PO SCH (16:54)
[2024-09-05 03:55] LABS: C.diff Antigen/Toxin Ag neg : Tox neg (NEG : NEG); CDIFF INTERNAL NEG CONTROL White Background (WHITE BKGD); STOOL CONSISTENCY Liquid/Semi-Solid
[2024-09-05 05:43] LABS: Absolute Lymphocytes (CBC) 1.1 K/uL (0.7-4.9); Absolute Monocytes 0.7 K/uL (0.1-1.3); Absolute Neutrophil 11.4 K/uL (1.8-8.0); Basophils % 0.3 % (0-1.3); Hematocrit 39.3 % (36.0-45.0); Hemoglobin 13.1 g/dL (12.0-15.0); Lymphocytes % 8.1 % (15.3-44.8); MCH 28.8 pg (27.0-35.0); MCHC 33.4 g/dL (32.0-36.0); MCV 86.2 fL (80-100); MPV 7.6 fL (7.6-11.3); Monocytes % 5.4 % (3.3-12.3); Neutrophils % 86.2 % (41.7-73.7); Platelets 270 thou/uL (152-406); RBC Red Blood Cell Count 4.56 M/uL (3.86-4.86); Red Cell Distribution Width 14.9 % (12.1-15.2)
[2024-09-05] MEDS ORDERED: LIDOCAINE 1% MPF 5 ML VIAL ONE (08:28)
[2024-09-05] MEDS ORDERED: propofoL 200 MG/20 ML VIAL IV ONE (08:28)
[2024-09-05 08:29] LABS: Anion Gap 9.3 mEq/L (5.0-15.0); Magnesium 2.2 mg/dL (1.6-2.4); Phosphorus 2.9 mg/dL (2.5-4.9); Potassium 3.3 mEq/L (3.5-5.1)
[2024-09-05] MEDS: Ringers Lactate 1,000 ML IV ONE (08:41)
[2024-09-05 09:51] VITALS: O2SAT 99
--- NOTE | 2024-09-05 09:56 | P.PN ---
Subjective Date of Service: 09/04/24 Chief Complaint: GI rectal bleed Subjective: Improving (Less abdominal pain / bloody diarrhea.) Physical Examination - Vital Signs Temperature: 97.2 F Blood Pressure: 135/79 Pulse: 83 Respirations: 18 Pulse Ox (%): 96 Assessment And Plan - Current Problems (Diagnosis) (1) Hematochezia Current Visit: Yes Status: Acute (2) Change in bowel habits Current Visit: Yes Status: Acute (3) Diarrhea Current Visit: Yes Status: Acute (4) RLQ abdominal pain Current Visit: Yes Status: Acute (5) LLQ abdominal pain Current Visit: Yes Status: Acute (6) Colitis Current Visit: Yes Status: Acute (7) Abnormal CT of the abdomen Current Visit: Yes Status: Acute - Plan 1) colonoscopy tomorrow 2) continue IVFs and IV antibiotics
[2024-09-05] MEDS: POTASSIUM CL SA 10 MEQ TAB PO ONE (10:31)
[2024-09-05] MEDS: AMLODIPINE 5 MG TAB PO SCH (10:32)
--- NOTE | 2024-09-05 12:00 | EKG ---
Test Date: 2024-09-04 Test Time: 14:50:24 Assessment Clinician: Gissel SHEN MEASUREMENT RESULTS: Intervals: Rate: 109 DC: 88 QRSD: 108 QT: 368 QTc: 495 Proctor: P: 57 DC: 88 QRS: -21 T: 20 INTERPRETIVE STATEMENTS: Sinus tachycardia with short DC Incomplete right bundle branch block Nonspecific ST abnormality Abnormal ECG No previous ECG available for comparison Electronically Signed On 09-05-24 11:57:27 CDT by Mitchell Galvan
--- NOTE | 2024-09-05 13:54 | P.PN ---
Subjective Date of Service: 09/05/24 Chief Complaint: GI rectal bleed No acute events overnight Physical Examination - Vital Signs Temperature: 98.4 F Blood Pressure: 179/82 Pulse: 85 Respirations: 16 Pulse Ox (%): 97 - Physical Exam General: Alert, Oriented x3 HEENT: Atraumatic Neck: Supple Respiratory: Clear to auscultation bilaterally Cardiovascular: No edema Gastrointestinal: Normal bowel sounds Musculoskeletal: No clubbing, No swelling, No contractures, No erythema, No tenderness Neurological: Normal gait, Normal strength at 5/5 x4 extr, Cranial nerves 3-12 intact Assessment And Plan - Plan Assessment and Plan Diarrhea with hematochezia -Concern for infectious versus ischemic colitis - CT abdomen/pelvis with contrast showed evidence of colitis around the ascending and transverse colon - plan for colonoscopy today 8 cm questionable fibroid -CT abdomen/pelvis incidental finding -Follow-up outpatient -Reports no vaginal bleeding Hypertension -Continue home medications as appropriate DVT PPx SCDs Full code LOS 2 to 3 days Discharge Plan: Home Plan to discharge in: 48 Hours
--- NOTE | 2024-09-05 20:22 | P.CNS ---
Date of Consult: 09/04/24 Chief Complaint: GI rectal bleed, abd pain History of Present Illness: 58 y/o with generalized abd pain last night . Pt also saw some bllod on a BM once. no active bleeding now. Pt mother required bowel resection in the past due to crohn disease but the [facility] state she hasnt bee diagnosed personally Allergies No Known Allergies Allergy (Unverified 09/03/24 14:33) Home Medications: Lisinopril [Zestril] 10 mg PO DAILY 09/03/24 - Past Medical/Surgical History -: Hypertension -: TUBAL - Family History Mother Notes: Crohn's disease - Social History Alcohol use: No CD- Drugs: No Caffeine use: No Place of Residence: Home Review of Systems General: Malaise ENT: Unremarkable Respiratory: Unremarkable Cardiovascular: Unremarkable Gastrointestinal: Nausea, Abdominal Pain (mild), Distention, As per HPI Genitourinary: Unremarkable Musculoskeletal: Unremarkable Physical Examination Temp Pulse Resp BP Pulse Ox 98.0 F 85 14 165/83 H 96 09/05/24 16:00 09/05/24 16:00 09/05/24 16:00 09/05/24 16:00 09/05/24 16:00 General: Alert, In no apparent distress, Oriented x3, Cooperative HEENT: PERRLA, EOMI Neck: Supple Respiratory: Normal air movement Cardiovascular: No edema Gastrointestinal: Soft and benign, Non-distended, No rebound, No guarding, Tenderness (mild generalized) Musculoskeletal: No erythema, No tenderness, No warmth Integumentary: No rashes, No breakdown, No erythema, No warmth, No cyanosis Neurological: Normal gait, Normal speech, Normal strength at 5/5 x4 extr, Normal tone Imagings Data: ct reviwed with patient Conclusions/Impression: Pt feel better, no peritonitis. Ok with liquid diet as per want to eat GI work up as outpatient if continues improvement.
--- NOTE | 2024-09-05 22:29 | PN ---
Date of Progress Note: 09/05/2024 Subjective: This patient was seen as a consult yesterday. Today, it is a followup. This is a case of a 58-year-old patient who comes to us with abdominal pain. Today, she feels better. No nausea. No vomiting. Passing flatus. Tolerating diet. Objective: Chest: Clear. Abdomen: Soft and depressible. No guarding or rebound. No peritoneal signs. Extremities: Good capillary refill. Laboratory Data: Blood work shows WBC count of 13.2 with platelets of 270. Creatinine is 0.6 and po tassium 3.3. Assessment/plan: From the surgical standpoint, we are going to advance diet. The abdomen is benign. She was advised to follow with the manager center. There is a question of family history of Cr ohn disease in Mother who required bowel resection at one point. At this moment, she is tolerating d iet. We are going to advance diet and continue outpatient if a workup unless clinically changed. CHANCE/ROLANDO Voice ID: [id number] Report ID: [id number]
[2024-09-06 04:46] LABS: Absolute Eosinophils 0.1 K/uL (0-0.5); Absolute Lymphocytes (CBC) 1.9 K/uL (0.7-4.9); Absolute Monocytes 0.7 K/uL (0.1-1.3); Absolute Neutrophil 7.1 K/uL (1.8-8.0); Basophils % 0.3 % (0-1.3); Eosinophils % 1.2 % (0-4.4); Hematocrit 38.3 % (36.0-45.0); Lymphocytes % 19.5 % (15.3-44.8); MCH 29.3 pg (27.0-35.0); MCV 86.3 fL (80-100); MPV 7.8 fL (7.6-11.3); Monocytes % 7.2 % (3.3-12.3); Neutrophils % 71.8 % (41.7-73.7); Nucleated Red Blood Cells % 0.1 % (0-0); Platelets 246 thou/uL (152-406); RBC Red Blood Cell Count 4.45 M/uL (3.86-4.86); Red Cell Distribution Width 14.7 % (12.1-15.2)
[2024-09-06 04:53] LABS: Anion Gap 8.4 mEq/L (5.0-15.0); Magnesium 2.3 mg/dL (1.6-2.4); Phosphorus 2.7 mg/dL (2.5-4.9); Potassium 3.4 mEq/L (3.5-5.1)
[2024-09-06] MEDS: POTASSIUM CL SA 10 MEQ TAB PO ONE (08:43)
[2024-09-06 08:58] VITALS: TEMP 98.3
[2024-09-06] MEDS: CEPHALEXIN 500 MG CAP PO SCH (12:45)
[2024-09-06] MEDS: metroNIDAZOLE 500 MG TABLET PO SCH (12:46)
[2024-09-06 12:49] VITALS: BP 129/60
--- NOTE | 2024-09-06 14:18 | P.DS ---
Admission Date: 09/03/24 Discharge Date: 09/06/24 Discharge Condition: GOOD Reason for Admission: GI rectal bleed, abd pain Hospital Course: 58-year-old female with history of essential hypertension, admitted for acute onset of abdominal pain. CT abdomen/pelvis positive for colitis in the ascending and transverse colon. Was on empiric antibiotics. Underwent colonoscopy on 09/05/2024 which showed evidence of colitis in the transverse colon otherwise unremarkable. Patient was initially on clear liquid diet prior to procedure and then advanced to soft diet postprocedure which she tolerated adequately. Patient was discharged on ciprofloxacin and Flagyl x 7 days per GI, Dr Miranda's recommendation. Outpatient follow-up with GI for repeat colonoscopy in 4 to 6 weeks Vital Signs/Physical Exam: Temp Pulse Resp BP Pulse Ox 98.3 F 70 12 129/60 96 09/06/24 12:00 09/06/24 12:00 09/06/24 12:00 09/06/24 12:00 09/06/24 12:00 General: Alert HEENT: Normocephalic Neck: Supple Respiratory: Clear to auscultation bilaterally Cardiovascular: No edema, Normal pulses, Regular rate/rhythm Gastrointestinal: Normal bowel sounds, Soft and benign Musculoskeletal: No clubbing, No swelling Neurological: Normal gait, Normal strength at 5/5 x4 extr Laboratory Data at Discharge: WBC Cancelled 09/06/24 06:00 Hgb Cancelled 09/06/24 06:00 Hct Cancelled 09/06/24 06:00 Plt Count Cancelled 09/06/24 06:00 Sodium Cancelled 09/06/24 06:00 Potassium Cancelled 09/06/24 06:00 BUN Cancelled 09/06/24 06:00 Creatinine Cancelled 09/06/24 06:00 Glucose Cancelled 09/06/24 06:00 Phosphorus 2.7 mg/dL (2.5-4.9) 09/06/24 04:03 Magnesium Cancelled 09/06/24 06:00 Total Bilirubin 0.4 mg/dL (0.2-1.0) 09/03/24 07:32 AST 23 U/L (15-37) 09/03/24 07:32 ALT 29 U/L (13-56) 09/03/24 07:32 Alkaline Phosphatase 110 U/L (45-117) 09/03/24 07:32 Lipase 35 U/L (13-75) 09/03/24 07:32 Home Medications: Lisinopril [Zestril] 10 mg PO DAILY 09/03/24 Ciprofloxacin HCl [Cipro] 500 mg PO TID 7 Days 09/06/24 metroNIDAZOLE [Flagyl*] 500 mg PO TID 7 Days 09/06/24 New Medications: Ciprofloxacin HCl [Cipro] 500 mg PO TID 7 Days metroNIDAZOLE [Flagyl*] 500 mg PO TID 7 Days Physician Discharge Instructions: Outpatient follow-up with Dr. Miranda within 2 to 4 weeks was discharged for repeat colonoscopy Followup: BHARATHI JOHNSON [Primary Care Provider] - 1-2 Weeks Zackary Miranda MD [ASSOCIATE-ACTIVE - CAN ADMIT] -
== END 2024-09-06 16:06 | disposition home health service (06) | DRG 387 ==
LOC: ER 07:01 → ERHOLD 12:46 → 2ND 14:49
PROVIDERS: ADMIT Hospitalist; ATTEND Internal Medicine
PROC: 0DBL8ZX Excision of Transverse Colon, Via Natural or Artificial Opening Endoscopic, Diagnostic (ICD-10-PCS; principal; 2024-09-05 08:00)
DX: K51.511 Left sided colitis with rectal bleeding (principal); I10 Essential (primary) hypertension; K64.8 Other hemorrhoids; E78.00 Pure hypercholesterolemia, unspecified; Z79.899 Other long term (current) drug therapy
CPT/HCPCS: 36415; 74177; 80048; 80053; 83605; 83690; 83735; 84100; 85014; 85018; 85025; 87045; 87046; 87324; 88305; 93005; 96365; 96375; 99285; J0360; J2003; J2270; J2405; J2470; J2543; J2704; J3480; J7030; J7040; J7050; J7120; Q9967